=== PATIENT | male | born 1975 | race Caucasian/White ===

== ENCOUNTER 2020-12-18 19:30 | Day surgery (SDCO) | payer OTHER ==
[2020-12-18 19:49] LABS: BASOPHIL 0.7 % (0-2); EOSINOPHIL 2.4 % (0-5); HCT 43.7 % (42.0-52.0); HGB 14.7 g/dl (13.2-18.0); LYMPHOCYTE 35.1 % (15-48); MCH 30.4 pg (25.0-31.0); MCHC 33.6 g/dL (32.0-36.0); MCV 90.3 fL (78.0-100.0); MONOCYTE 8.8 % (0-12); MPV 10.7 fL (6.0-9.5); NEUTROPHIL 52.7 % (41-80); NRBC 0; PLT 239 K/uL (150-400); RBC 4.84 M/uL (4.70-6.00); RDW 12.5 % (11.5-14.0); WBC 6.8 K/uL (4.0-10.5)
[2020-12-18 19:58] LABS: INR 0.94 (0.9-1.2); PROTHROMBIN TIME 11.9 SECONDS (11.4-13.6); PTT 25.7 SECONDS (22.2-34.7)
[2020-12-18 20:03] LABS: BILIRUBIN NEGATIVE (NEGATIVE); BLOOD NEGATIVE Ery/uL (NEGATIVE); CLARITY CLEAR (CLEAR); COLOR YELLOW (YELLOW); GLUCOSE (U) NORMAL (NORMAL); LEUKOCYTES NEGATIVE Leu/uL (NEGATIVE); NITRITE NEGATIVE (NEGATIVE); PROTEIN NEGATIVE (NEGATIVE); UROBILINOGEN 0.2 mg/dL (0.2-1.0)
[2020-12-18 20:05] LABS: BARBITURATES NEGATIVE (NEGATIVE); ECSTASY (MDMA) NEGATIVE (NEGATIVE); MARIJUANA (THC) NEGATIVE (NEGATIVE); METHADONE NEGATIVE (NEGATIVE); OPIATES NEGATIVE (NEGATIVE)
[2020-12-18 20:06] LABS: AMPHETAMINES NEGATIVE (NEGATIVE); OXYCODONE NEGATIVE (NEGATIVE)
[2020-12-18 20:07] LABS: ALBUMIN 4.1 g/dL (3.4-5.0); BILIRUBIN - TOTAL 0.7 mg/dL (0.2-1.0); BUN/CREAT RATIO (CALC) 12.1 RATIO; CREATININE 0.99 mg/dL (0.67-1.17); GLOBULIN (CALCULATION) 3.9 g/dL; POTASSIUM 3.9 mmol/L (3.5-5.1)
[2020-12-19 05:08] LABS: BASOPHIL 0.7 % (0-2); EOSINOPHIL 2.5 % (0-5); HCT 42.6 % (42.0-52.0); HGB 14.1 g/dl (13.2-18.0); LYMPHOCYTE 40.7 % (15-48); MCH 29.9 pg (25.0-31.0); MCHC 33.1 g/dL (32.0-36.0); MCV 90.4 fL (78.0-100.0); MONOCYTE 7.5 % (0-12); MPV 10.8 fL (6.0-9.5); NEUTROPHIL 48.3 % (41-80); NRBC 0; PLT 235 K/uL (150-400); RBC 4.71 M/uL (4.70-6.00); RDW 12.9 % (11.5-14.0); WBC 6.7 K/uL (4.0-10.5)
[2020-12-19 05:39] LABS: BUN/CREAT RATIO (CALC) 11.8 RATIO; CREATININE 0.76 mg/dL (0.67-1.17); POTASSIUM 3.6 mmol/L (3.5-5.1)
[2020-12-19] MEDS ORDERED: ADDERALL 20 MG20 MG PO (05:47)
[2020-12-19] MEDS ORDERED: PRINIVIL20 MG PO (11:35)
[2020-12-19] MEDS ORDERED: TOPIRAMATE100 MG PO (11:35)
[2020-12-19] MEDS ORDERED: PRAVACHOL20 MG PO (11:35)
--- NOTE | 2020-12-19 13:10 | NUR ---
PT REPORTS HE LIVES WITH HIS S/O; PLEASE ADVISE OF ANY DISCHARGE NEEDS
[2020-12-19] MEDS ORDERED: ASPIRIN EC81 MG PO (13:51)
== END 2020-12-19 14:53 | disposition home or self-care (01) ==
LOC: FER 19:30 → FICU 22:47
PROVIDERS: Emergency Medicine Emergency Medical Services; Nurse Practitioner; ADMIT Internal Medicine
DX: G45.9 Transient cerebral ischemic attack, unspecified (principal); G43.909 Migraine, unspecified, not intractable, without status migrainosus; I10 Essential (primary) hypertension; E78.5 Hyperlipidemia, unspecified; M19.90 Unspecified osteoarthritis, unspecified site; R00.2 Palpitations; G47.33 Obstructive sleep apnea (adult) (pediatric); Z79.899 Other long term (current) drug therapy; Z20.822 Contact with and (suspected) exposure to COVID-19; Z82.3 Family history of stroke
CPT/HCPCS: 36415; 70450; 70551; 71045; 80048; 80053; 80061; 80305; 81003; 82550; 84443; 84484; 85025; 85610; 85730; 93005; 97161; G0378; J1650; J7030; Q9967